=== PATIENT | female | born 1980 | race Caucasian/White ===

== ENCOUNTER 2017-02-08 15:16 | Emergency (ER) | payer OTHER ==
[2017-02-08 15:20] VITALS: BP 115/72; PULSE 88; TEMP 98.6; BMI 32.4
--- NOTE | 2017-02-08 16:02 | PDOC ---
History of Present Illness - General Chief Complaint: Vaginal Bleeding Stated Complaint: SPOTTING (6 WKS ) Time Seen by Provider: 02/08/17 15:52 History Source: Patient Exam Limitations: No Limitations - History of Present Illness Initial Comments: 02/08/17 16:16 Patient is a 36-year-old female past medical history of MS, tubal ligation s/p reversal, who presents to the emergency department today complaining of vaginal spotting. Patient reports that she is currently 6 weeks . Admits to nausea, fatigue. She states that is following closely with an [employer] given her past medical history. She had a transvaginal ultrasound a week ago where they saw the sac however no heartbeat was identified at that time most likely due to the timing of her . Today she states that she noticed some spotting with dark red blood. Patient knows that this is a high risk . Admits to suprapubic tenderness, dysuria, diarrhea and alternating constipation. Denies fevers, chills, chest pain, shortness of breath. Past History - Past Medical History Allergies/Adverse Reactions: Allergies Allergy/AdvReac Type Severity Reaction Status Date / Time Sulfa (Sulfonamide Allergy Mild Verified 02/08/17 15:17 Antibiotics) Home Medications: Ambulatory Orders Cephalexin Monohydrate [Keflex -] 500 mg PO BID #14 capsule 02/08/17 Other medical history: MS, fibromyalgia, migraines - Surgical History Abdominal Surgery: Yes (DALJIT TANNER) - Immunization History Immunization Up to Date: Yes - Suicide/Smoking/Psychosocial Hx Smoking History: Never smoked Number of Cigarettes Smoked Daily: 0 Cigars Per Day: 0 Information on smoking cessation initiated: No Hx Alcohol Use: No Drug/Substance Use Hx: No Substance Use Type: None Review of Systems - Review of Systems Able to Perform ROS?: Yes Comments:: 02/08/17 16:16 CONSTITUTIONAL: Absent: fever, chills, diaphoresis, generalized weakness, malaise, loss of appetite HEENT: Absent: rhinorrhea, nasal congestion, throat pain, throat swelling, difficulty swallowing, mouth swelling, ear pain, eye pain, visual Changes CARDIOVASCULAR: Absent: chest pain, loss of consciousness, palpitations, irregular heart rate, peripheral edema RESPIRATORY: Absent: cough, shortness of breath, dyspnea with exertion, orthopnea, wheezing, stridor, hemoptysis GASTROINTESTINAL: Absent: abdominal pain, abdominal distension, nausea, vomiting, diarrhea, constipation, melena, hematochezia GENITOURINARY: Present:vaginal spotting, dysuria, frequency, urgency, flank pain Absent: hematuria, genital pain MUSCULOSKELETAL: Absent: myalgia, arthralgia, joint swelling SKIN: Absent: rash, itching, pallor HEMATOLOGIC/IMMUNOLOGIC: Absent: easy bleeding, easy bruising, lymphadenopathy, frequent infections ENDOCRINE: Absent: unexplained weight gain, unexplained weight loss, heat intolerance, cold intolerance NEUROLOGIC: Absent: headache, focal weakness or paresthesias, dizziness, unsteady gait, seizure, mental status changes, bladder or bowel incontinence PSYCHIATRIC: Absent: anxiety, depression, suicidal or homicidal ideation, hallucinations. Is the patient limited Latvian proficient: No *Physical Exam - Vital Signs Last Vital Signs Temp Pulse Resp BP Pulse Ox 98.6 F 88 18 115/72 100 02/08/17 15:17 02/08/17 15:17 02/08/17 15:17 02/08/17 15:17 02/08/17 15:17 - Physical Exam Comments: 02/08/17 16:16 GENERAL: Well developed, well nourished. Awake and alert. No acute distress. HEENT: Normocephalic, atraumatic. PERRLA, EOMI. No conjunctival pallor. Sclera are non- icteric. Moist mucous membranes. Oropharynx is clear. NECK: Supple. Full ROM. No JVD. Carotid pulses 2+ and symmetric, without bruits. No thyromegaly. No lymphadenopathy. CARDIOVASCULAR: Regular rate and rhythm. No murmurs, rubs, or gallops. Distal pulses are 2+ and symmetric. PULMONARY: No evidence of respiratory distress. Lungs clear to auscultation bilaterally. No wheezing, rales or rhonchi. ABDOMINAL: Mild TTP over suprapubic region and LLQ. Soft. Non-tender. Non-distended. No rebound or guarding. No organomegaly. Normoactive bowel sounds. MUSCULOSKELETAL Normal range of motion at all joints. No bony deformities or tenderness. No CVA tenderness. EXTREMITIES: No cyanosis. No clubbing. No edema. No calf tenderness. SKIN: Warm and dry. Normal capillary refill. No rashes. No jaundice. NEUROLOGICAL: Alert, awake, appropriate. Cranial nerves 2-12 intact. No deficits to light touch and temperature in face, upper extremities and lower extremities. No motor deficits in the in face, upper extremities and lower extremities. Normoreflexic in the upper and lower extremities. Normal speech. Toes are down- going bilaterally. Gait is normal without ataxia. PSYCHIATRIC: Cooperative. Good eye contact. Appropriate mood and affect. [employer] [address]: External: No rashes or lesions noted; Internal exam: Uterus is slightly retroverted. Cervical os closed, with yeast and brown discharge. No bright red blood or active bleeding noted. No blood in the vaginal vault. No cervical motion tenderness. ED Treatment Course - LABORATORY CBC & Chemistry Diagram: 02/08/17 16:29 02/08/17 16:29 Medical Decision Making - Medical Decision Making 02/08/17 17:01 Pt. is a 36 y/o female 6 weeks who presents to the ED c/o vaginal bleeding. Given her PMH of MS and tubal ligation reversal, higher risk . Pt. does have a yeast infection based on clinical exam. DDx includes , normal , UTI, ectopic, pyleonephritis. 1. CBC, CMP, Beta-HCG, UA, UC 2. Transvaginal US 3. Zofran 4. Re-evaluate 02/08/17 18:39 Lab work is unremarkable, no elevated WBC, electrolytes within Normal limits. UA shows 1+ blood and 1 WBC. Will treat for symptomatic UTI given PMH of MS. Pt. was prescribed Keflex with first dose given now. Pt. was also instructed to buy monostat over the counter for her yeast infection US report: one live intrauterine with a heart rate in the 130's. No ectopic. Ovarian cyst on the R. Will discharge home at this time. Pt. and partner are very excited for their . Will keep follow up with their [facility] on Wednesday. Pt. understands return precautions and understands all discharge instructions. All questions were answered. *DC/Admit/Observation/Transfer Diagnosis at time of Disposition: Yeast infection involving the vagina and surrounding area, Abdominal pain affecting UTI (urinary tract infection) Qualifiers: Urinary tract infection type: site unspecified Hematuria presence: with hematuria Qualified Code(s): N39.0 - Urinary tract infection, site not specified - Discharge Dispostion Disposition: HOME Condition at time of disposition: Good Admit: No - Prescriptions Prescriptions: Cephalexin Monohydrate [Keflex -] 500 mg PO BID #14 capsule - Referrals Referrals: Good Garcia MD [Staff Physician] - - Patient Instructions Printed Discharge Instructions: DI for Vaginal Yeast Infection, DI for Abdominal Pain -- Early Additional Instructions: Your ultrasound showed a single with a heart beat. You were given a copy of your ultrasound report. You also have a yeast infection. Purchase Monostat over the counter and follow the manufactures directions. You were also prescribed Keflex. Take the medication as prescribed and take the full dose even if you feel better. Avoid sexual intercourse for the next 2 weeks because of the yeast infection. Follow up with your [facility] on Wednesday as scheduled. Return to the ED if you have worsening pain, bleeding, fevers, chills, or any changes in your symptoms.
[2017-02-08 16:44] LABS: BASOPHIL 0.6 % (0-2.0); EOSINOPHIL 0.7 % (0-4.5); MCH 30.4 pg (25.7-33.7); MCHC 34.1 g/dl (32.0-36.0); MEAN CELL VOLUME 89.1 fl (80-96); MEAN PLT VOLUME 7.6 fl (7.5-11.1); NEUTROPHILS 63.1 % (42.8-82.8); PLATELET COUNT 337 K/MM3 (134-434); RDW 13.1 % (11.6-15.6); WHITE BLOOD COUNT 7.6 K/mm3 (4.0-10.0)
[2017-02-08 17:12] LABS: ALBUMIN 3.8 g/dl (3.4-5.0); ANION GAP 8 (8-16); BILIRUBIN,TOTAL 0.3 mg/dL (0.2-1.0); CALCIUM 9.3 mg/dL (8.5-10.1); CO2 26 mmol/L (21-32); CREATININE 0.7 mg/dL (0.55-1.02); GLUCOSE,RANDOM 67 mg/dL (74-106); SGOT/AST 14 U/L (15-37); SGPT/ALT 21 U/L (12-78); TOT PROT 7.4 g/dl (6.4-8.2)
[2017-02-08 17:13] LABS: ALK PHOS 80 U/L (45-117)
[2017-02-08 18:36] LABS: URINE APPEARANCE CLEAR; URINE BILIRUBIN NEGATIVE (NEGATIVE); URINE BLOOD 1+ (NEGATIVE); URINE COLOR LTYELLOW; URINE GLUCOSE (UA) NEGATIVE (NEGATIVE); URINE KETONE NEGATIVE (NEGATIVE); URINE LEUK ESTERASE NEGATIVE (NEGATIVE); URINE NITRITE NEGATIVE (NEGATIVE); URINE PROTEIN NEGATIVE (NEGATIVE); URINE UROBILINOGEN NEGATIVE mg/dL (0.2-1.0)
[2017-02-08 18:42] LABS: URINE RBC 1 /hpf (0-3); URINE WBC 1 /hpf (3-5)
[2017-02-08] MEDS ORDERED: CEPHALEXIN MONOHYDRATE 500 MG CAPSULE (UD) PO ONE (19:07)
[2017-02-08] MEDS ORDERED: CEPHALEXIN MONOHYDRATE 250 MG CAPSULE (FP) ONE (19:28)
== END 2017-02-08 19:29 | disposition home or self-care (01) ==
LOC: JER 15:16
DX: O23.41 Unspecified infection of urinary tract in pregnancy, first trimester (principal); R31.9 Hematuria, unspecified; O98.811 Other maternal infectious and parasitic diseases complicating pregnancy, first trimester; B37.89 Other sites of candidiasis; Z3A.01 Less than 8 weeks gestation of pregnancy
CPT/HCPCS: 36415; 76817-TC; 80053; 81003; 81015; 84702; 85025; 87086; 99285-25

== ENCOUNTER 2017-03-23 22:07 | Emergency (ER) | payer OTHER ==
[2017-03-23 23:02] VITALS: BP 122/68; PULSE 84; TEMP 98.3; BMI 28.9
[2017-03-23 23:49] LABS: URINE APPEARANCE CLEAR; URINE BILIRUBIN NEGATIVE (NEGATIVE); URINE BLOOD 2+ (NEGATIVE); URINE COLOR YELLOW; URINE GLUCOSE (UA) NEGATIVE (NEGATIVE); URINE KETONE NEGATIVE (NEGATIVE); URINE NITRITE NEGATIVE (NEGATIVE); URINE PROTEIN NEGATIVE (NEGATIVE); URINE UROBILINOGEN NEGATIVE mg/dL (0.2-1.0)
[2017-03-23 23:52] LABS: URINE MUCUS RARE; URINE RBC 6 /hpf (0-3); URINE WBC 1 /hpf (3-5)
--- NOTE | 2017-03-24 00:20 | PDOC ---
History of Present Illness - History of Present Illness Initial Comments: 03/24/17 00:24 The patient is a 36 year old female, who is 13 weeks with a significant past medical history of MS, fibromyalgia, , BV, and Yeast infection, UTI who was sent by her pcp at [facility] for a urinary problem. Patient states that she has been experiencing chills, lightheadedness, dizziness , and bilateral flank pain (right side worse than left), as well as suprapubic pain for 2 days. She also states she has been urinating more frequently lately. She denies recent dysuria, or hematuria. She denies recent fevers or headache She denies recent nausea, vomit, diarrhea or constipation. She denies recent chest pain or shortness of breath. Allergies: Sulfa Past surgical history: , C4&C5 disc replacement. Back surgery Social history: Nonsmoker. Denies EtOH use and recreational drug use. Primary Care Physician: Saturnino Lilly <Luz Maria Suresh - Last Filed: 03/24/17 00:24> <Dori Kessler - Last Filed: 03/24/17 00:28> - General Stated Complaint: PCP SENT/URINARY PROBLEM/13 WKS Time Seen by Provider: 03/23/17 23:07 Past History <Luz Maria Suresh - Last Filed: 03/24/17 00:24> - Past Medical History COPD: No - Surgical History Abdominal Surgery: Yes (DALJIT TANNER) - Reproductive History Therapeutic (s) & number: No - Immunization History Immunization Up to Date: Yes - Suicide/Smoking/Psychosocial Hx Smoking History: Never smoked Have you smoked in the past 12 months: No Number of Cigarettes Smoked Daily: 0 Cigars Per Day: 0 Information on smoking cessation initiated: No Hx Alcohol Use: No Drug/Substance Use Hx: No Substance Use Type: None <Dori Kessler - Last Filed: 03/24/17 00:28> - Past Medical History Allergies/Adverse Reactions: Allergies Allergy/AdvReac Type Severity Reaction Status Date / Time Sulfa (Sulfonamide Allergy Mild Verified 03/23/17 22:51 Antibiotics) Home Medications: Ambulatory Orders NK [No Known Home Medication] 03/23/17 Review of Systems - Review of Systems Comments:: 03/24/17 00:20 CONSTITUTIONAL: Present: chills Absent: fever, diaphoresis, generalized weakness, malaise, loss of appetite HEENT: Absent: rhinorrhea, nasal congestion, throat pain, throat swelling, difficulty swallowing, mouth swelling, ear pain, eye pain, visual Changes CARDIOVASCULAR: Present: lightheadedness Absent: chest pain, syncope, palpitations, irregular heart rate, peripheral edema RESPIRATORY: Absent: cough, shortness of breath, dyspnea with exertion, orthopnea, wheezing, stridor, hemoptysis GASTROINTESTINAL: Presnt: lower abdominal pain, bilateral flank pain Absent: abdominal distension, nausea, vomiting, diarrhea, constipation, melena , hematochezia GENITOURINARY: Absent: dysuria, frequency, urgency, hesitancy, hematuria, flank pain, genital pain MUSCULOSKELETAL: Absent: myalgia, arthralgia, joint swelling SKIN: Absent: rash, itching, pallor HEMATOLOGIC/IMMUNOLOGIC: Absent: easy bleeding, easy bruising, lymphadenopathy, frequent infections ENDOCRINE: Absent: unexplained weight gain, unexplained weight loss, heat intolerance, cold intolerance NEUROLOGIC: Present: dizziness Absent: headache, focal weakness or paresthesias, unsteady gait, seizure, mental status changes, bladder or bowel incontinence PSYCHIATRIC: Absent: anxiety, depression, suicidal or homicidal ideation, hallucinations. <Luz Maria Suresh - Last Filed: 03/24/17 00:24> *Physical Exam - Vital Signs Last Vital Signs Temp Pulse Resp BP Pulse Ox 98.3 F 84 19 122/68 98 03/23/17 22:51 03/23/17 22:51 03/23/17 22:51 03/23/17 22:51 03/23/17 22:51 - Physical Exam Comments: 03/24/17 00:23 GENERAL: Well-appearing, well-nourished. No apparent distress. HEENT: Normocephalic, atraumatic. PERRL, EOM intact. CARDIOVASCULAR: Normal S1, S2. Regular rate and rhythm. PULMONARY: Clear to auscultation bilaterally. ABDOMEN: Soft, non-distended, non-tender. EXTREMITIES: Normal ROM in all four extremities. No gross deformities. SKIN: Warm, dry. No rash NEUROLOGICAL: No focal neurological deficits. <Luz Maria Suresh - Last Filed: 03/24/17 00:24> - Vital Signs Last Vital Signs Temp Pulse Resp BP Pulse Ox 98.3 F 84 19 122/68 98 03/23/17 22:51 03/23/17 22:51 03/23/17 22:51 03/23/17 22:51 03/23/17 22:51 <Dori Kessler - Last Filed: 03/24/17 00:28> ED Treatment Course - ADDITIONAL ORDERS Additional order review: Laboratory Results 03/23/17 23:30 Urine Color Yellow Urine Appearance Clear Urine pH 6.0 Ur Specific [place] 1.024 Urine Protein Negative Urine Glucose (UA) Negative Urine Ketones Negative Urine Blood 2+ H Urine Nitrite Negative Urine Bilirubin Negative Urine Urobilinogen Negative Urine RBC 6 Urine WBC 1 Ur Epithelial Cells Rare Urine Mucus Rare <Luz Maria Suresh - Last Filed: 03/24/17 00:24> - ADDITIONAL ORDERS Additional order review: Laboratory Results 03/23/17 23:30 Urine Color Yellow Urine Appearance Clear Urine pH 6.0 Ur Specific [place] 1.024 Urine Protein Negative Urine Glucose (UA) Negative Urine Ketones Negative Urine Blood 2+ H Urine Nitrite Negative Urine Bilirubin Negative Urine Urobilinogen Negative Urine RBC 6 Urine WBC 1 Ur Epithelial Cells Rare Urine Mucus Rare <Dori Kessler - Last Filed: 03/24/17 00:28> *DC/Admit/Observation/Transfer - Attestations Scribe Attestion: 03/24/17 00:23 Documentation prepared by Luz Maria Suresh, acting as medical tech for Dori Kessler MD. <Luz Maria Suresh - Last Filed: 03/24/17 00:24> <Dori Kessler - Last Filed: 03/24/17 00:28> Diagnosis at time of Disposition: Back pain Qualifiers: Back pain location: low back pain Chronicity: unspecified Back pain laterality : unspecified Sciatica presence: without sciatica Qualified Code(s): M54.5 - Low back pain Qualifiers: Weeks of gestation: 12 weeks Qualified Code(s): Z3A.12 - 12 weeks gestation of - Discharge Dispostion Disposition: HOME Condition at time of disposition: Stable - Referrals Referrals: Saturnino Lilly [Primary Care Provider] - - Patient Instructions Printed Discharge Instructions: DI for -- Discomforts and Remedies, DI for Musculoskeletal Pain Additional Instructions: PLEASE FOLLOWUP WITH YOUR CAB DRIVER
[2017-03-24 08:59] LABS: URINE LEUK ESTERASE Negative (NEGATIVE)
== END 2017-03-24 00:39 | disposition home or self-care (01) ==
LOC: JER 22:07
DX: O26.891 Other specified pregnancy related conditions, first trimester (principal); M54.5 Low back pain; Z3A.12 12 weeks gestation of pregnancy; Z87.39 Personal history of other diseases of the musculoskeletal system and connective tissue; F10.21 Alcohol dependence, in remission; Z87.42 Personal history of other diseases of the female genital tract
CPT/HCPCS: 81003; 81015; 99284-25